=== PATIENT | male | born 1945 | race Caucasian/White ===

== ENCOUNTER 2021-06-18 15:26 | Inpatient (IN) | payer MEDICARE, OTHER ==
[~2021-06-18] VITALS: Ht 172.7 cm; Wt 122.0 kg
[2021-06-18] MEDS ORDERED: ONDANSETRON HCL INJ 2MG/ML 2ML 2 MG/ML VIAL IV STA (15:45)
[2021-06-18] MEDS ORDERED: SODIUM CHLORIDE 0.9% 1000ML 500 ML IV STA (15:45)
[2021-06-18 16:01] LABS: BASOPHILS # (AUTO) 0.1 (0.0-0.1); BASOPHILS % 0.4 % (0.0-1.0); EOSINOPHILS % 0.3 % (0.0-6.0); HEMOGLOBIN 12.3 g/dL (14.0-18.0); LYMPHOCYTES # (AUTO) 1.4 (1.0-3.2); LYMPHOCYTES % 11.4 % (18.0-39.1); MEAN CORPUSCULAR HEMOGLOBIN 29.4 pg (28-32); MEAN CORPUSCULAR HGB CONC 32.4 g/dL (31-35); MEAN CORPUSCULAR VOLUME 90.9 fL (81-99); MONOCYTES # (AUTO) 1.4 (0.2-0.8); MONOCYTES % 11.3 % (4.4-11.3); NEUTROPHILS # (AUTO) 9.5 (2.1-6.9); NEUTROPHILS % 75.7 % (38.7-80.0); PLATELET COUNT 311 x10e3/uL (140-360); RED BLOOD COUNT 4.18 x10e6/uL (4.3-5.7); RED CELL DISTRIBUTION WIDTH 12.9 % (11.7-14.4)
[2021-06-18 16:08] LABS: INR 0.97; PROTHROMBIN TIME 13.1 seconds (11.9-14.5)
[2021-06-18 16:09] LABS: PARTIAL THROMBOPLASTIN TIME 28.1 seconds (23.8-35.5)
[2021-06-18 16:14] LABS: ALBUMIN 3.1 g/dL (3.5-5.0); ALBUMIN/GLOBULIN RATIO 0.8 (0.8-2.0); ANION GAP 15.9 mmol/L (8-16); CALCIUM 8.2 mg/dL (8.4-10.2); CREATININE, SERUM 0.96 mg/dL (0.72-1.25); MAGNESIUM 2.7 MG/DL (1.3-2.1); POTASSIUM 3.9 mmol/L (3.5-5.1)
[2021-06-18 16:24] LABS: CREATINE KINASE MB 1.4 ng/mL (0-5.0)
[2021-06-18] MEDS ORDERED: SUCCINYLCHOLINE CHLORIDE 20 MG/ML 10ML VIAL ONE (16:33)
[2021-06-18] MEDS ORDERED: NEOSTIGMINE 1 MG/ML 10ML VIAL ONE (16:33)
[2021-06-18] MEDS ORDERED: POVIDONE IODINE 0.05% 0.05 % ML PO ONE (16:33)
[2021-06-18] MEDS ORDERED: SEVOFLURANE INHAL SOLN 250 ML PEN BTL ONE (16:33)
[2021-06-18] MEDS ORDERED: PROPOFOL IV EMULSION 10 MG/ML 20 ML VIAL ONE (16:33)
[2021-06-18] MEDS ORDERED: ONDANSETRON HCL INJ 2MG/ML 2ML 2 MG/ML VIAL ONE (16:33)
[2021-06-18] MEDS ORDERED: GLYCOPYRROLATE INJ 0.2 MG/ML VIAL ONE (16:33)
[2021-06-18] MEDS ORDERED: EPHEDRINE SULFATE INJ 50 MG/ML VIAL ONE (16:33)
[2021-06-18] MEDS ORDERED: ROCURONIUM BROMIDE 10 MG/ML 5ML VIAL IV ONE (16:33)
[2021-06-18] MEDS ORDERED: PHENYLEPHRINE HCL 1% 10 MG/ML VIAL ONE (16:33)
[2021-06-18] MEDS ORDERED: LIDOCAINE HCL 2% LOCAL INJ 5 ML SDV VIAL INJ ONE (16:33)
[2021-06-18] MEDS ORDERED: KETOROLAC TROMETHAMINE 30 MG/ML VIAL ONE (16:33)
[2021-06-18] MEDS ORDERED: SODIUM CHLORIDE 0.9% 50ML 50 ML ONE (16:37)
[2021-06-18] MEDS ORDERED: IOPAMIDOL 370 MG/ML 200 ML INFUS..BTL INJ ONE (16:37)
[2021-06-18 17:09] LABS: CLARITY,URINE SL CLOUDY (CLEAR); COLOR,URINE AMBER (YELLOW); KETONES,URINE 2+ (NEGATIVE); LEUKOCYTE ESTERASE ,URINE NEGATIVE (NEGATIVE); NITRITE,URINE NEGATIVE (NEGATIVE); PROTEIN,URINE DIPSTICK 1+ (NEGATIVE); URINE UROBILINOGEN 0.2 mg/dL (0.2 - 1)
[2021-06-18 17:20] LABS: AMORPHOUS SEDIMENT,URINE MODERATE (FEW); BACTERIA,URINE MODERATE /HPF; EPITHELIAL CELLS,URINE MODERATE /LPF
[2021-06-18] MEDS: SODIUM CHLORIDE 0.9% 1000ML 1,000 ML IV SCH (19:26)
[2021-06-18] MEDS: PIPERACILLIN/TAZOBACTAM 3.375 GM in SODIUM CHLORIDE 0.9% 50ML 50 ML IV SCH (19:30)
[2021-06-18] MEDS: Morphine 4mg Syringe 4 MG/ML INJ IV PRN (21:15)
[2021-06-18] MEDS: ONDANSETRON HCL INJ 2MG/ML 2ML 2 MG/ML VIAL IV PRN (21:16)
[2021-06-19] VITALS (10 sets, daily range): BP systolic 110–155; BP diastolic 60–74
[2021-06-19] MEDS: SODIUM CHLORIDE 0.9% 1000ML 1,000 ML IV SCH ×4 (00:45→21:49)
[2021-06-19] MEDS: PIPERACILLIN/TAZOBACTAM 3.375 GM in SODIUM CHLORIDE 0.9% 50ML 50 ML IV SCH ×3 (01:40→17:20)
[2021-06-19] MEDS: Morphine 4mg Syringe 4 MG/ML INJ IV PRN ×4 (01:41→22:04)
[2021-06-19 07:24] LABS: BASOPHILS # (AUTO) 0.1 (0.0-0.1); BASOPHILS % 0.4 % (0.0-1.0); EOSINOPHILS % 0.1 % (0.0-6.0); HEMATOCRIT 37.8 % (38.2-49.6); LYMPHOCYTES # (AUTO) 1.1 (1.0-3.2); LYMPHOCYTES % 5.8 % (18.0-39.1); MEAN CORPUSCULAR HEMOGLOBIN 29.5 pg (28-32); MEAN CORPUSCULAR HGB CONC 31.7 g/dL (31-35); MEAN CORPUSCULAR VOLUME 92.9 fL (81-99); MONOCYTES # (AUTO) 2.4 (0.2-0.8); MONOCYTES % 12.3 % (4.4-11.3); NEUTROPHILS # (AUTO) 15.4 (2.1-6.9); NEUTROPHILS % 80.7 % (38.7-80.0); PLATELET COUNT 318 x10e3/uL (140-360); RED BLOOD COUNT 4.07 x10e6/uL (4.3-5.7); RED CELL DISTRIBUTION WIDTH 12.9 % (11.7-14.4)
[2021-06-19 07:51] LABS: ALBUMIN/GLOBULIN RATIO 0.8 (0.8-2.0); ANION GAP 18.1 mmol/L (8-16); CALCIUM 8.3 mg/dL (8.4-10.2); CREATININE, SERUM 0.95 mg/dL (0.72-1.25); POTASSIUM 4.1 mmol/L (3.5-5.1)
[2021-06-19] MEDS ORDERED: FENTANYL CITRATE/PF 100MCG/2 ML INJ ONE (13:08)
[2021-06-19] MEDS ORDERED: ACETAMINOPHEN 1000 MG/100 ML IV PRN (14:30)
[2021-06-19] MEDS: SODIUM CHLORIDE 0.9% 250ML IRRIG IR SCH ×3 (14:30→22:04)
[2021-06-19] MEDS ORDERED: ALBUTEROL/IPRATROPIUM 3 ML NEB ONE (14:51)
[2021-06-19] MEDS ORDERED: HYDRALAZINE HCL 20 MG/ML VIAL IV PRN (16:15)
[2021-06-19] MEDS: INSULIN LISPRO 100 UNIT/1 ML 3ML VIAL SQ SCH ×2 (17:20→21:00)
[2021-06-20] VITALS (8 sets, daily range): BP systolic 124–160; BP diastolic 56–105
[2021-06-20] MEDS: Morphine 4mg Syringe 4 MG/ML INJ IV PRN ×3 (02:01→10:45)
[2021-06-20] MEDS: SODIUM CHLORIDE 0.9% 250ML IRRIG IR SCH ×4 (02:34→14:30)
[2021-06-20] MEDS: PIPERACILLIN/TAZOBACTAM 3.375 GM in SODIUM CHLORIDE 0.9% 50ML 50 ML IV SCH ×3 (02:34→17:04)
[2021-06-20 04:58] LABS: BASOPHILS # (AUTO) 0.1 (0.0-0.1); BASOPHILS % 0.4 % (0.0-1.0); HEMATOCRIT 32.9 % (38.2-49.6); HEMOGLOBIN 10.6 g/dL (14.0-18.0); LYMPHOCYTES # (AUTO) 1.3 (1.0-3.2); LYMPHOCYTES % 5.9 % (18.0-39.1); MEAN CORPUSCULAR HEMOGLOBIN 29.6 pg (28-32); MEAN CORPUSCULAR HGB CONC 32.2 g/dL (31-35); MEAN CORPUSCULAR VOLUME 91.9 fL (81-99); MONOCYTES # (AUTO) 2.7 (0.2-0.8); MONOCYTES % 11.7 % (4.4-11.3); NEUTROPHILS # (AUTO) 18.6 (2.1-6.9); NEUTROPHILS % 81.1 % (38.7-80.0); PLATELET COUNT 261 x10e3/uL (140-360); RED BLOOD COUNT 3.58 x10e6/uL (4.3-5.7); RED CELL DISTRIBUTION WIDTH 13.1 % (11.7-14.4)
[2021-06-20 05:23] LABS: ALBUMIN 2.6 g/dL (3.5-5.0); ALBUMIN/GLOBULIN RATIO 0.7 (0.8-2.0); ANION GAP 17.4 mmol/L (8-16); CALCIUM 7.7 mg/dL (8.4-10.2); CREATININE, SERUM 1.05 mg/dL (0.72-1.25); MAGNESIUM 2.7 MG/DL (1.3-2.1); POTASSIUM 4.4 mmol/L (3.5-5.1)
[2021-06-20] MEDS: SODIUM CHLORIDE 0.9% 1000ML 1,000 ML IV SCH ×2 (06:08→17:05)
[2021-06-20] MEDS: INSULIN LISPRO 100 UNIT/1 ML 3ML VIAL SQ SCH ×4 (07:30→21:00)
[2021-06-20] MEDS ORDERED: LYRICA150 MG PO (11:11)
[2021-06-20] MEDS ORDERED: BUSPIRONE HCL5 MG PO (11:11)
[2021-06-20] MEDS ORDERED: MONTELUKAST SOD10 MG PO (11:11)
[2021-06-20] MEDS ORDERED: FUROSEMIDE40 MG PO (11:11)
[2021-06-20] MEDS ORDERED: LEVOCETIRIZINE D5 MG (11:11)
[2021-06-20] MEDS ORDERED: LOSARTAN POTASS25 MG PO (11:11)
[2021-06-20] MEDS ORDERED: CARVEDILOL12.5 MG PO (11:11)
[2021-06-20] MEDS ORDERED: CYMBALTA30 MG (11:11)
[2021-06-20] MEDS ORDERED: PRAVASTATIN SOD40 MG PO (11:11)
[2021-06-20 11:18] LABS: LYMPHOCYTES % (MANUAL) 6 % (19-48); MONOCYTES % (MANUAL) 4 % (3.4-9.0); NEUTROPHILS % (MANUAL) 90 % (40-74)
[2021-06-20 11:19] LABS: PLATELET ESTIMATE ADEQUATE; PLATELET MORPHOLOGY COMMENT NORMAL; RBC MORPHOLOGY COMMENT NORMAL
[2021-06-20] MEDS: TAMSULOSIN HCL 0.4 MG CAP PO SCH (21:00)
[2021-06-20] MEDS: Morphine 2mg Syringe 2 MG/ML SYR IV PRN (22:38)
[2021-06-21 00:34] VITALS: BP 160/62
[2021-06-21] MEDS: PIPERACILLIN/TAZOBACTAM 3.375 GM in SODIUM CHLORIDE 0.9% 50ML 50 ML IV SCH ×3 (01:54→17:43)
[2021-06-21 05:09] VITALS: BP 140/71
[2021-06-21] MEDS: SODIUM CHLORIDE 0.9% 1000ML 1,000 ML IV SCH ×2 (06:02→15:43)
[2021-06-21] MEDS: Morphine 2mg Syringe 2 MG/ML SYR IV PRN (06:09)
[2021-06-21 06:28] LABS: BASOPHILS # (AUTO) 0.1 (0.0-0.1); BASOPHILS % 0.3 % (0.0-1.0); EOSINOPHILS % 0.1 % (0.0-6.0); HEMATOCRIT 29.6 % (38.2-49.6); HEMOGLOBIN 10.1 g/dL (14.0-18.0); LYMPHOCYTES # (AUTO) 1.1 (1.0-3.2); LYMPHOCYTES % 4.8 % (18.0-39.1); MEAN CORPUSCULAR HEMOGLOBIN 32.4 pg (28-32); MEAN CORPUSCULAR HGB CONC 34.1 g/dL (31-35); MEAN CORPUSCULAR VOLUME 94.9 fL (81-99); MONOCYTES # (AUTO) 2.5 (0.2-0.8); MONOCYTES % 10.7 % (4.4-11.3); NEUTROPHILS # (AUTO) 19.5 (2.1-6.9); NEUTROPHILS % 82.7 % (38.7-80.0); PLATELET COUNT 212 x10e3/uL (140-360); RED BLOOD COUNT 3.12 x10e6/uL (4.3-5.7)
[2021-06-21 06:53] LABS: ALBUMIN 2.4 g/dL (3.5-5.0); ALBUMIN/GLOBULIN RATIO 0.6 (0.8-2.0); CREATININE, SERUM 0.76 mg/dL (0.72-1.25); MAGNESIUM 2.1 MG/DL (1.3-2.1)
[2021-06-21] MEDS: INSULIN LISPRO 100 UNIT/1 ML 3ML VIAL SQ SCH ×4 (07:30→21:44)
[2021-06-21 08:00] VITALS: BP 152/65
[2021-06-21 11:00] VITALS: BP 152/65
[2021-06-21] MEDS: MONTELUKAST SODIUM 10 MG TAB PO SCH (11:05)
[2021-06-21 12:19] VITALS: BP 144/63
[2021-06-21] MEDS: FUROSEMIDE INJ 10 MG/ML 4 ML VIAL IV SCH (15:00)
[2021-06-21 20:00] VITALS: BP 142/93
[2021-06-21] MEDS: TAMSULOSIN HCL 0.4 MG CAP PO SCH (20:25)
[2021-06-21] MEDS: ALBUTEROL/IPRATROPIUM 3 ML NEB NEB SCH (23:38)
[2021-06-22] VITALS (7 sets, daily range): BP systolic 126–163; BP diastolic 57–75
[2021-06-22] MEDS: PIPERACILLIN/TAZOBACTAM 3.375 GM in SODIUM CHLORIDE 0.9% 50ML 50 ML IV SCH ×3 (01:30→16:53)
[2021-06-22] MEDS: SODIUM CHLORIDE 0.9% 1000ML 1,000 ML IV SCH ×2 (01:43→12:47)
[2021-06-22] MEDS: Morphine 2mg Syringe 2 MG/ML SYR IV PRN (03:37)
[2021-06-22 06:05] LABS: BASOPHILS # (AUTO) 0.1 (0.0-0.1); BASOPHILS % 0.3 % (0.0-1.0); EOSINOPHILS # (AUTO) 0.1 (0.0-0.4); EOSINOPHILS % 0.6 % (0.0-6.0); HEMATOCRIT 30.2 % (38.2-49.6); HEMOGLOBIN 10.1 g/dL (14.0-18.0); LYMPHOCYTES # (AUTO) 1.3 (1.0-3.2); LYMPHOCYTES % 7.2 % (18.0-39.1); MEAN CORPUSCULAR HGB CONC 33.4 g/dL (31-35); MEAN CORPUSCULAR VOLUME 89.6 fL (81-99); MONOCYTES # (AUTO) 2.2 (0.2-0.8); MONOCYTES % 12.3 % (4.4-11.3); NEUTROPHILS # (AUTO) 14.1 (2.1-6.9); NEUTROPHILS % 78.1 % (38.7-80.0); PLATELET COUNT 270 x10e3/uL (140-360); RED BLOOD COUNT 3.37 x10e6/uL (4.3-5.7); RED CELL DISTRIBUTION WIDTH 13.4 % (11.7-14.4)
[2021-06-22 06:53] LABS: ANION GAP 16.4 mmol/L (8-16); CALCIUM 8.4 mg/dL (8.4-10.2); CREATININE, SERUM 0.76 mg/dL (0.72-1.25); POTASSIUM 3.4 mmol/L (3.5-5.1)
[2021-06-22] MEDS: INSULIN LISPRO 100 UNIT/1 ML 3ML VIAL SQ SCH ×4 (07:30→21:17)
[2021-06-22] MEDS: ALBUTEROL/IPRATROPIUM 3 ML NEB NEB SCH ×3 (08:23→19:20)
[2021-06-22] MEDS ORDERED: MONTELUKAST SODIUM 10 MG TAB PO SCH (09:00)
[2021-06-22] MEDS: FUROSEMIDE INJ 10 MG/ML 4 ML VIAL IV SCH ×2 (09:35→16:52)
[2021-06-22] MEDS: MONTELUKAST SODIUM 10 MG TAB PO SCH (09:35)
[2021-06-22] MEDS: TAMSULOSIN HCL 0.4 MG CAP PO SCH (21:15)
[2021-06-23] VITALS: BP 147/85
[2021-06-23] MEDS: ONDANSETRON HCL INJ 2MG/ML 2ML 2 MG/ML VIAL IV PRN (01:17)
[2021-06-23] MEDS: ALBUTEROL/IPRATROPIUM 3 ML NEB NEB SCH ×3 (01:30→14:32)
[2021-06-23] MEDS: PIPERACILLIN/TAZOBACTAM 3.375 GM in SODIUM CHLORIDE 0.9% 50ML 50 ML IV SCH ×3 (01:35→16:41)
[2021-06-23] MEDS ORDERED: PANTOPRAZOLE SOD 40 MG TABEC PO ONE (02:30)
[2021-06-23 04:00] VITALS: BP 146/65
[2021-06-23 05:46] LABS: BASOPHILS # (AUTO) 0.1 (0.0-0.1); BASOPHILS % 0.7 % (0.0-1.0); EOSINOPHILS # (AUTO) 0.1 (0.0-0.4); EOSINOPHILS % 0.4 % (0.0-6.0); HEMATOCRIT 31.5 % (38.2-49.6); HEMOGLOBIN 10.5 g/dL (14.0-18.0); LYMPHOCYTES # (AUTO) 1.2 (1.0-3.2); LYMPHOCYTES % 10.3 % (18.0-39.1); MEAN CORPUSCULAR HEMOGLOBIN 29.2 pg (28-32); MEAN CORPUSCULAR HGB CONC 33.3 g/dL (31-35); MEAN CORPUSCULAR VOLUME 87.5 fL (81-99); MONOCYTES # (AUTO) 1.8 (0.2-0.8); MONOCYTES % 14.8 % (4.4-11.3); NEUTROPHILS # (AUTO) 8.4 (2.1-6.9); NEUTROPHILS % 69.9 % (38.7-80.0); PLATELET COUNT 295 x10e3/uL (140-360); RED CELL DISTRIBUTION WIDTH 13.2 % (11.7-14.4)
[2021-06-23 06:05] LABS: CALCIUM 8.2 mg/dL (8.4-10.2); CREATININE, SERUM 0.68 mg/dL (0.72-1.25)
[2021-06-23] MEDS ORDERED: PANTOPRAZOLE SOD 40 MG TABEC PO SCH (07:30)
[2021-06-23 08:00] VITALS: BP 125/75
[2021-06-23] MEDS: FUROSEMIDE INJ 10 MG/ML 4 ML VIAL IV SCH ×2 (09:36→16:40)
[2021-06-23] MEDS: INSULIN LISPRO 100 UNIT/1 ML 3ML VIAL SQ SCH ×3 (09:37→16:40)
[2021-06-23 12:00] VITALS: BP 142/101
[2021-06-23] MEDS ORDERED: SIMETHICONE 80 MG CHEW PO PRN (12:45)
[2021-06-23 13:14] VITALS: BP 142/101
[2021-06-23] MEDS: POTASSIUM CHLORIDE 20 MEQ TAB CR PO SCH ×3 (15:35→16:41)
[2021-06-23] MEDS: MONTELUKAST SODIUM 10 MG TAB PO SCH (15:36)
[2021-06-23 15:54] VITALS: BP 149/86
[2021-06-24] MEDS ORDERED: PANTOPRAZOLE SOD 40 MG TABEC PO SCH (07:30)
[2021-06-24] MEDS ORDERED: LOSARTAN POTASSIUM 25 MG TAB PO SCH (09:00)
== END 2021-06-23 19:20 | disposition home or self-care (01) | DRG 353 ==
LOC: ER 17:48 → ERHOLD 18:41 → MED/SURG2 06-19 00:33
PROVIDERS: ADMIT Family Medicine; ATTEND Family Medicine
PROC: 0WUF0JZ Supplement Abdominal Wall with Synthetic Substitute, Open Approach (ICD-10-PCS; principal; 2021-06-19 11:30)
DX: K43.6 Other and unspecified ventral hernia with obstruction, without gangrene (principal); I50.33 Acute on chronic diastolic (congestive) heart failure; Z68.41 Body mass index [BMI] 40.0-44.9, adult; N39.0 Urinary tract infection, site not specified; I50.22 Chronic systolic (congestive) heart failure; I50.32 Chronic diastolic (congestive) heart failure; I25.10 Atherosclerotic heart disease of native coronary artery without angina pectoris; I11.0 Hypertensive heart disease with heart failure; E11.21 Type 2 diabetes mellitus with diabetic nephropathy; E11.42 Type 2 diabetes mellitus with diabetic polyneuropathy; E66.01 Morbid (severe) obesity due to excess calories; N43.3 Hydrocele, unspecified; E27.8 Other specified disorders of adrenal gland; N39.41 Urge incontinence; N32.81 Overactive bladder; R31.0 Gross hematuria; N47.1 Phimosis; E87.6 Hypokalemia; D64.9 Anemia, unspecified; Z95.0 Presence of cardiac pacemaker; Z95.1 Presence of aortocoronary bypass graft; E83.51 Hypocalcemia; Z91.81 History of falling
CPT/HCPCS: 36415; 51700; 70450; 71045; 71250; 72125; 74018; 74177; 80048; 80053; 81001; 82150; 82550; 82553; 82948; 83690; 83735; 83880; 84484; 85025; 85610; 85730; 87086; 88302; 88304; 93005; 93306; 94640; 97139; 99285; C1781; J0330; J0360; J1885; J1940; J2001; J2270; J2370; J2405; J2543; J2710; J3010; J7030; Q9967; U0002

== ENCOUNTER 2022-02-03 16:59 | Inpatient (IN) | payer MEDICARE, OTHER ==
[~2022-02-03] VITALS: Ht 172.7 cm; Wt 127.3 kg
[~2022-02-03 16:59] MED LIST: BUSPIRONE HCL5 MG PO; CARVEDILOL12.5 MG PO; CYMBALTA30 MG; FUROSEMIDE40 MG PO; LEVOCETIRIZINE D5 MG; LOSARTAN POTASS25 MG PO; LYRICA150 MG PO; MONTELUKAST SOD10 MG PO; PRAVASTATIN SOD40 MG PO
[2022-02-03 17:25] LABS: BASOPHILS # (AUTO) 0.1 (0.0-0.1); BASOPHILS % 0.5 % (0.0-1.0); EOSINOPHILS # (AUTO) 0.1 (0.0-0.4); HEMATOCRIT 29.1 % (38.2-49.6); HEMOGLOBIN 9.3 g/dL (14.0-18.0); LYMPHOCYTES # (AUTO) 1.5 (1.0-3.2); LYMPHOCYTES % 13.9 % (18.0-39.1); MEAN CORPUSCULAR HEMOGLOBIN 28.4 pg (28-32); MEAN CORPUSCULAR VOLUME 88.7 fL (81-99); MONOCYTES # (AUTO) 1.7 (0.2-0.8); MONOCYTES % 15.8 % (4.4-11.3); NEUTROPHILS # (AUTO) 7.3 (2.1-6.9); PLATELET COUNT 338 x10e3/uL (140-360); RED BLOOD COUNT 3.28 x10e6/uL (4.3-5.7); RED CELL DISTRIBUTION WIDTH 17.4 % (11.7-14.4)
[2022-02-03 17:44] LABS: ALBUMIN 2.4 g/dL (3.5-5.0); ALBUMIN/GLOBULIN RATIO 0.5 (0.8-2.0); ANION GAP 16.1 mmol/L (8-16); CALCIUM 8.5 mg/dL (8.4-10.2); CREATININE, SERUM 1.06 mg/dL (0.72-1.25); POTASSIUM 4.1 mmol/L (3.5-5.1)
[2022-02-03] MEDS ORDERED: IOPAMIDOL 370 MG/ML 100 ML INFUS..BTL INJ ONE (18:17)
[2022-02-03] MEDS ORDERED: PIPERACILLIN/TAZOBACTAM 3.375 GM VIAL ONE (19:27)
[2022-02-03 19:58] VITALS: BP 141/59
[2022-02-03 20:10] VITALS: BP 141/59
[2022-02-03] MEDS: Morphine 4mg Syringe 4 MG/ML INJ IV PRN (21:48)
[2022-02-03] MEDS: ONDANSETRON HCL INJ 2MG/ML 2ML 2 MG/ML VIAL IV PRN (21:48)
[2022-02-04] MEDS: HYDROCODONE/APAP 5MG-325MG TAB PO PRN (00:15)
[2022-02-04 00:17] VITALS: BP 125/80
[2022-02-04] MEDS: FUROSEMIDE INJ 10 MG/ML 4 ML VIAL IV SCH ×3 (01:03→20:32)
[2022-02-04] MEDS ORDERED: ALBUTEROL (02:15)
[2022-02-04] MEDS ORDERED: SODIUM CHLORIDE 0.9% 250ML 250 ML ONE (02:29)
[2022-02-04 04:00] VITALS: BP 121/52
[2022-02-04 04:58] LABS: BASOPHILS # (AUTO) 0.1 (0.0-0.1); BASOPHILS % 0.5 % (0.0-1.0); EOSINOPHILS # (AUTO) 0.1 (0.0-0.4); EOSINOPHILS % 0.9 % (0.0-6.0); HEMATOCRIT 30.5 % (38.2-49.6); HEMOGLOBIN 9.7 g/dL (14.0-18.0); LYMPHOCYTES # (AUTO) 1.6 (1.0-3.2); LYMPHOCYTES % 13.4 % (18.0-39.1); MEAN CORPUSCULAR HEMOGLOBIN 28.4 pg (28-32); MEAN CORPUSCULAR HGB CONC 31.8 g/dL (31-35); MEAN CORPUSCULAR VOLUME 89.2 fL (81-99); MONOCYTES # (AUTO) 1.9 (0.2-0.8); MONOCYTES % 16.4 % (4.4-11.3); NEUTROPHILS # (AUTO) 7.9 (2.1-6.9); NEUTROPHILS % 66.9 % (38.7-80.0); PLATELET COUNT 360 x10e3/uL (140-360); RED BLOOD COUNT 3.42 x10e6/uL (4.3-5.7); RED CELL DISTRIBUTION WIDTH 17.8 % (11.7-14.4)
[2022-02-04 05:19] LABS: ALBUMIN 2.5 g/dL (3.5-5.0); ALBUMIN/GLOBULIN RATIO 0.5 (0.8-2.0); ANION GAP 14.5 mmol/L (8-16); CALCIUM 8.3 mg/dL (8.4-10.2); CREATININE, SERUM 1.13 mg/dL (0.72-1.25); POTASSIUM 4.5 mmol/L (3.5-5.1)
[2022-02-04 05:57] LABS: CREATINE KINASE MB 2.8 ng/mL (0-5.0)
[2022-02-04] MEDS: ONDANSETRON HCL INJ 2MG/ML 2ML 2 MG/ML VIAL IV PRN ×2 (08:00→17:53)
[2022-02-04] MEDS: Morphine 4mg Syringe 4 MG/ML INJ IV PRN ×3 (08:00→23:10)
[2022-02-04 08:55] VITALS: BP 121/52
[2022-02-04 14:06] LABS: CREATINE KINASE MB 2.6 ng/mL (0-5.0)
[2022-02-04 20:03] VITALS: BP 140/78
[2022-02-04] MEDS: ALBUTEROL SULF 0.083% NEB SOLN 3 ML NEB NEB SCH (22:45)
[2022-02-04 23:27] VITALS: BP 140/78
[2022-02-04] MEDS ORDERED: CALCIUM CARBONATE 500 MG CHEWABLE TABS PO PRN (23:45)
[2022-02-05] MEDS: SUCRALFATE 1 GM TAB PO SCH ×2 (00:03→21:28)
[2022-02-05] MEDS: Morphine 4mg Syringe 4 MG/ML INJ IV PRN ×2 (03:15→07:35)
[2022-02-05 05:42] VITALS: BP 135/70
[2022-02-05 06:08] LABS: BASOPHILS # (AUTO) 0.1 (0.0-0.1); BASOPHILS % 0.5 % (0.0-1.0); EOSINOPHILS % 0.2 % (0.0-6.0); HEMATOCRIT 30.7 % (38.2-49.6); HEMOGLOBIN 9.8 g/dL (14.0-18.0); LYMPHOCYTES # (AUTO) 1.6 (1.0-3.2); LYMPHOCYTES % 12.7 % (18.0-39.1); MEAN CORPUSCULAR HEMOGLOBIN 28.7 pg (28-32); MEAN CORPUSCULAR HGB CONC 31.9 g/dL (31-35); MEAN CORPUSCULAR VOLUME 89.8 fL (81-99); MONOCYTES % 15.3 % (4.4-11.3); NEUTROPHILS # (AUTO) 8.9 (2.1-6.9); NEUTROPHILS % 69.2 % (38.7-80.0); PLATELET COUNT 389 x10e3/uL (140-360); RED BLOOD COUNT 3.42 x10e6/uL (4.3-5.7); RED CELL DISTRIBUTION WIDTH 18.2 % (11.7-14.4)
[2022-02-05] MEDS: ALBUTEROL SULF 0.083% NEB SOLN 3 ML NEB NEB SCH ×2 (06:25→13:30)
[2022-02-05 06:45] LABS: ALBUMIN 2.4 g/dL (3.5-5.0); ALBUMIN/GLOBULIN RATIO 0.5 (0.8-2.0); ANION GAP 15.3 mmol/L (8-16); CALCIUM 8.5 mg/dL (8.4-10.2); CREATININE, SERUM 1.29 mg/dL (0.72-1.25); POTASSIUM 4.3 mmol/L (3.5-5.1)
[2022-02-05] MEDS: ONDANSETRON HCL INJ 2MG/ML 2ML 2 MG/ML VIAL IV PRN (07:35)
[2022-02-05] MEDS: FUROSEMIDE INJ 10 MG/ML 4 ML VIAL IV SCH ×2 (07:43→21:28)
[2022-02-05] MEDS: BUSPIRONE HCL 5 MG TAB PO SCH ×3 (07:49→21:28)
[2022-02-05] MEDS: PREGABALIN 75 MG CAP PO SCH (07:50)
[2022-02-05] MEDS: SODIUM CHLORIDE 1 GM TAB PO SCH ×3 (07:50→21:28)
[2022-02-05] MEDS: CARVEDILOL 12.5 MG TAB PO SCH ×2 (07:50→17:49)
[2022-02-05] MEDS: DULOXETINE HCL 30 MG DELAYED RELEASE PO SCH (07:50)
[2022-02-05] MEDS: LOSARTAN POTASSIUM 25 MG TAB PO SCH (07:50)
[2022-02-05 08:46] VITALS: BP 135/70
[2022-02-05] MEDS: BALSAM PERU/CASTOR OIL 60 GM OINT...G. TP SCH (09:00)
[2022-02-05] MEDS: CLINDAMYCIN PHOS 900MG/ 50ML 50 ML IV SCH ×2 (14:30→21:32)
[2022-02-05] MEDS ORDERED: DEXTROSE 50% SYRINGE 50 ML IV PRN (14:45)
[2022-02-05] MEDS: LORATADINE 10 MG TAB PO SCH (17:48)
[2022-02-05] MEDS: MONTELUKAST SODIUM 10 MG TAB PO SCH (17:49)
[2022-02-05] MEDS: APIXABAN 5 MG TABLET PO SCH (17:49)
[2022-02-05] MEDS: INSULIN REGULAR, HUMAN 100 UNIT/1 ML SQ SCH ×2 (18:11→21:30)
[2022-02-05] MEDS ORDERED: ALBUTEROL SULF 0.083% NEB SOLN 3 ML NEB NEB SCH (19:00)
[2022-02-05] MEDS: ALBUTEROL/IPRATROPIUM 3 ML NEB NEB SCH (19:06)
[2022-02-05] MEDS: HYDROCODONE/APAP 5MG-325MG TAB PO PRN (19:07)
[2022-02-05 19:46] LABS: CLARITY,URINE CLOUDY (CLEAR); COLOR,URINE YELLOW (YELLOW)
[2022-02-05 19:47] LABS: KETONES,URINE NEGATIVE (NEGATIVE); LEUKOCYTE ESTERASE ,URINE MODERATE (NEGATIVE); NITRITE,URINE NEGATIVE (NEGATIVE); PROTEIN,URINE DIPSTICK 1+ (NEGATIVE); URINE UROBILINOGEN 0.2 mg/dL (0.2 - 1)
[2022-02-05 20:07] LABS: WBC,URINE (MAN) >50 /HPF (0-5)
[2022-02-05 20:08] LABS: BACTERIA,URINE MANY /HPF; EPITHELIAL CELLS,URINE FEW /LPF
[2022-02-05 20:10] LABS: YEAST,URINE FEW
[2022-02-05 20:11] VITALS: BP 110/79
[2022-02-05] MEDS: PRAVASTATIN 20 MG TAB PO SCH (21:28)
[2022-02-05] MEDS: TAMSULOSIN HCL 0.4 MG CAP PO SCH (21:28)
[2022-02-05] MEDS: INSULIN GLARGINE 100 UNITS/ML VIAL SQ SCH (21:29)
[2022-02-05 22:58] VITALS: BP 110/79
[2022-02-05 23:58] VITALS: BP 90/62
[2022-02-06] VITALS (7 sets, daily range): BP systolic 94–111; BP diastolic 46–68
[2022-02-06] MEDS: ALBUTEROL/IPRATROPIUM 3 ML NEB NEB SCH ×5 (00:52→23:01)
[2022-02-06] MEDS: CLINDAMYCIN PHOS 900MG/ 50ML 50 ML IV SCH ×3 (06:00→23:37)
[2022-02-06 06:14] LABS: BASOPHILS # (AUTO) 0.1 (0.0-0.1); BASOPHILS % 0.5 % (0.0-1.0); EOSINOPHILS # (AUTO) 0.3 (0.0-0.4); EOSINOPHILS % 2.3 % (0.0-6.0); HEMATOCRIT 31.2 % (38.2-49.6); HEMOGLOBIN 9.8 g/dL (14.0-18.0); LYMPHOCYTES # (AUTO) 1.4 (1.0-3.2); LYMPHOCYTES % 10.3 % (18.0-39.1); MEAN CORPUSCULAR HEMOGLOBIN 28.5 pg (28-32); MEAN CORPUSCULAR HGB CONC 31.4 g/dL (31-35); MEAN CORPUSCULAR VOLUME 90.7 fL (81-99); MONOCYTES # (AUTO) 2.1 (0.2-0.8); MONOCYTES % 15.6 % (4.4-11.3); NEUTROPHILS # (AUTO) 9.5 (2.1-6.9); NEUTROPHILS % 69.3 % (38.7-80.0); PLATELET COUNT 398 x10e3/uL (140-360); RED BLOOD COUNT 3.44 x10e6/uL (4.3-5.7); RED CELL DISTRIBUTION WIDTH 18.5 % (11.7-14.4)
[2022-02-06 06:30] LABS: ANION GAP 12.2 mmol/L (8-16); CALCIUM 8.5 mg/dL (8.4-10.2); CREATININE, SERUM 1.47 mg/dL (0.72-1.25); POTASSIUM 4.2 mmol/L (3.5-5.1)
[2022-02-06] MEDS: INSULIN REGULAR, HUMAN 100 UNIT/1 ML SQ SCH ×4 (08:02→21:00)
[2022-02-06] MEDS: FUROSEMIDE INJ 10 MG/ML 4 ML VIAL IV SCH ×2 (08:09→21:00)
[2022-02-06] MEDS: BUSPIRONE HCL 5 MG TAB PO SCH ×3 (08:09→22:45)
[2022-02-06] MEDS: BALSAM PERU/CASTOR OIL 60 GM OINT...G. TP SCH (08:10)
[2022-02-06] MEDS: PREGABALIN 75 MG CAP PO SCH (08:10)
[2022-02-06] MEDS: CARVEDILOL 12.5 MG TAB PO SCH ×2 (08:10→17:00)
[2022-02-06] MEDS: APIXABAN 5 MG TABLET PO SCH ×2 (08:10→17:51)
[2022-02-06] MEDS: DULOXETINE HCL 30 MG DELAYED RELEASE PO SCH (08:10)
[2022-02-06] MEDS: SODIUM CHLORIDE 1 GM TAB PO SCH ×3 (08:10→22:57)
[2022-02-06] MEDS: LOSARTAN POTASSIUM 25 MG TAB PO SCH (08:10)
[2022-02-06] MEDS: HYDROCODONE/APAP 5MG-325MG TAB PO PRN ×2 (08:50→17:52)
[2022-02-06] MEDS: LORATADINE 10 MG TAB PO SCH (17:50)
[2022-02-06] MEDS: MONTELUKAST SODIUM 10 MG TAB PO SCH (17:51)
[2022-02-06] MEDS: INSULIN GLARGINE 100 UNITS/ML VIAL SQ SCH (21:00)
[2022-02-06] MEDS: SUCRALFATE 1 GM TAB PO SCH (22:45)
[2022-02-06] MEDS: TAMSULOSIN HCL 0.4 MG CAP PO SCH (22:45)
[2022-02-06] MEDS: PRAVASTATIN 20 MG TAB PO SCH (22:45)
[2022-02-07] VITALS (9 sets, daily range): BP systolic 93–170; BP diastolic 34–82
[2022-02-07] MEDS: CLINDAMYCIN PHOS 900MG/ 50ML 50 ML IV SCH ×3 (06:21→23:19)
[2022-02-07 06:53] LABS: BASOPHILS # (AUTO) 0.1 (0.0-0.1); BASOPHILS % 0.7 % (0.0-1.0); EOSINOPHILS # (AUTO) 0.3 (0.0-0.4); HEMATOCRIT 32.8 % (38.2-49.6); HEMOGLOBIN 10.1 g/dL (14.0-18.0); LYMPHOCYTES % 14.6 % (18.0-39.1); MEAN CORPUSCULAR HEMOGLOBIN 28.3 pg (28-32); MEAN CORPUSCULAR HGB CONC 30.8 g/dL (31-35); MEAN CORPUSCULAR VOLUME 91.9 fL (81-99); MONOCYTES # (AUTO) 2.4 (0.2-0.8); MONOCYTES % 17.8 % (4.4-11.3); NEUTROPHILS # (AUTO) 8.4 (2.1-6.9); NEUTROPHILS % 62.2 % (38.7-80.0); PLATELET COUNT 372 x10e3/uL (140-360); RED BLOOD COUNT 3.57 x10e6/uL (4.3-5.7); RED CELL DISTRIBUTION WIDTH 18.7 % (11.7-14.4)
[2022-02-07] MEDS: BUDESONIDE 0.25 MG/2 ML NEB NEB SCH ×2 (06:57→19:30)
[2022-02-07] MEDS: ALBUTEROL/IPRATROPIUM 3 ML NEB NEB SCH ×3 (06:57→19:15)
[2022-02-07] MEDS: HYDROCODONE/APAP 5MG-325MG TAB PO PRN ×2 (07:10→23:20)
[2022-02-07 07:17] LABS: ALBUMIN 2.3 g/dL (3.5-5.0); ALBUMIN/GLOBULIN RATIO 0.5 (0.8-2.0); ANION GAP 14.4 mmol/L (8-16); CALCIUM 8.4 mg/dL (8.4-10.2); CREATININE, SERUM 1.78 mg/dL (0.72-1.25); POTASSIUM 4.4 mmol/L (3.5-5.1)
[2022-02-07] MEDS: INSULIN REGULAR, HUMAN 100 UNIT/1 ML SQ SCH ×4 (08:04→22:56)
[2022-02-07] MEDS: FUROSEMIDE INJ 10 MG/ML 4 ML VIAL IV SCH ×2 (09:31→21:00)
[2022-02-07] MEDS: PREGABALIN 75 MG CAP PO SCH (09:32)
[2022-02-07] MEDS: APIXABAN 5 MG TABLET PO SCH ×2 (09:32→17:08)
[2022-02-07] MEDS: CARVEDILOL 12.5 MG TAB PO SCH ×2 (09:32→17:08)
[2022-02-07] MEDS: DULOXETINE HCL 30 MG DELAYED RELEASE PO SCH (09:32)
[2022-02-07] MEDS: BALSAM PERU/CASTOR OIL 60 GM OINT...G. TP SCH (09:32)
[2022-02-07] MEDS: LOSARTAN POTASSIUM 25 MG TAB PO SCH (09:32)
[2022-02-07] MEDS: BUSPIRONE HCL 5 MG TAB PO SCH ×3 (09:32→22:46)
[2022-02-07] MEDS: Morphine 4mg Syringe 4 MG/ML INJ IV PRN (13:03)
[2022-02-07] MEDS: LORATADINE 10 MG TAB PO SCH (17:07)
[2022-02-07] MEDS: MONTELUKAST SODIUM 10 MG TAB PO SCH (17:08)
[2022-02-07] MEDS: SUCRALFATE 1 GM TAB PO SCH (22:46)
[2022-02-07] MEDS: TAMSULOSIN HCL 0.4 MG CAP PO SCH (22:46)
[2022-02-07] MEDS: PRAVASTATIN 20 MG TAB PO SCH (22:46)
[2022-02-07] MEDS: INSULIN GLARGINE 100 UNITS/ML VIAL SQ SCH (22:57)
[2022-02-08] VITALS (7 sets, daily range): BP systolic 101–181; BP diastolic 60–154
[2022-02-08] MEDS: ALBUTEROL/IPRATROPIUM 3 ML NEB NEB SCH ×2 (01:00→06:57)
[2022-02-08 05:54] LABS: BASOPHILS # (AUTO) 0.1 (0.0-0.1); BASOPHILS % 0.5 % (0.0-1.0); EOSINOPHILS # (AUTO) 0.2 (0.0-0.4); EOSINOPHILS % 1.7 % (0.0-6.0); HEMATOCRIT 31.2 % (38.2-49.6); HEMOGLOBIN 9.7 g/dL (14.0-18.0); LYMPHOCYTES # (AUTO) 1.7 (1.0-3.2); LYMPHOCYTES % 13.3 % (18.0-39.1); MEAN CORPUSCULAR HEMOGLOBIN 28.6 pg (28-32); MEAN CORPUSCULAR HGB CONC 31.1 g/dL (31-35); MONOCYTES # (AUTO) 1.7 (0.2-0.8); NEUTROPHILS # (AUTO) 8.4 (2.1-6.9); NEUTROPHILS % 67.8 % (38.7-80.0); PLATELET COUNT 372 x10e3/uL (140-360); RED BLOOD COUNT 3.39 x10e6/uL (4.3-5.7); RED CELL DISTRIBUTION WIDTH 18.5 % (11.7-14.4)
[2022-02-08 06:09] LABS: ANION GAP 16.7 mmol/L (8-16); CALCIUM 8.4 mg/dL (8.4-10.2); CREATININE, SERUM 1.57 mg/dL (0.72-1.25); POTASSIUM 4.7 mmol/L (3.5-5.1)
[2022-02-08] MEDS: CLINDAMYCIN PHOS 900MG/ 50ML 50 ML IV SCH ×3 (06:19→21:09)
[2022-02-08] MEDS: HYDROCODONE/APAP 5MG-325MG TAB PO PRN (06:20)
[2022-02-08] MEDS: BUDESONIDE 0.25 MG/2 ML NEB NEB SCH (07:00)
[2022-02-08] MEDS ORDERED: ALBUTEROL/IPRATROPIUM 3 ML NEB NEB PRN (08:00)
[2022-02-08] MEDS: FUROSEMIDE INJ 10 MG/ML 4 ML VIAL IV SCH ×2 (10:55→21:00)
[2022-02-08] MEDS: BUSPIRONE HCL 5 MG TAB PO SCH ×3 (10:57→21:00)
[2022-02-08] MEDS: CARVEDILOL 12.5 MG TAB PO SCH ×2 (10:58→17:26)
[2022-02-08] MEDS: LOSARTAN POTASSIUM 25 MG TAB PO SCH (10:59)
[2022-02-08] MEDS: DULOXETINE HCL 30 MG DELAYED RELEASE PO SCH (11:00)
[2022-02-08] MEDS: APIXABAN 5 MG TABLET PO SCH ×2 (11:00→17:26)
[2022-02-08] MEDS: BALSAM PERU/CASTOR OIL 60 GM OINT...G. TP SCH (11:01)
[2022-02-08] MEDS: PREGABALIN 75 MG CAP PO SCH (11:01)
[2022-02-08] MEDS: INSULIN REGULAR, HUMAN 100 UNIT/1 ML SQ SCH ×4 (11:30→21:00)
[2022-02-08] MEDS: Morphine 4mg Syringe 4 MG/ML INJ IV PRN (12:12)
[2022-02-08] MEDS: ONDANSETRON HCL INJ 2MG/ML 2ML 2 MG/ML VIAL IV PRN (12:12)
[2022-02-08] MEDS: LORATADINE 10 MG TAB PO SCH (17:25)
[2022-02-08] MEDS: MONTELUKAST SODIUM 10 MG TAB PO SCH (17:26)
[2022-02-08] MEDS: INSULIN GLARGINE 100 UNITS/ML VIAL SQ SCH (21:00)
[2022-02-08] MEDS: SUCRALFATE 1 GM TAB PO SCH (21:00)
[2022-02-08] MEDS: TAMSULOSIN HCL 0.4 MG CAP PO SCH (21:00)
[2022-02-08] MEDS: PRAVASTATIN 20 MG TAB PO SCH (21:00)
[2022-02-09] VITALS (7 sets, daily range): BP systolic 99–108; BP diastolic 46–84
[2022-02-09] MEDS: CLINDAMYCIN PHOS 900MG/ 50ML 50 ML IV SCH ×3 (05:39→22:00)
[2022-02-09] MEDS: INSULIN REGULAR, HUMAN 100 UNIT/1 ML SQ SCH ×4 (07:30→20:41)
[2022-02-09] MEDS: BALSAM PERU/CASTOR OIL 60 GM OINT...G. TP SCH (09:00)
[2022-02-09] MEDS: BUSPIRONE HCL 5 MG TAB PO SCH ×2 (09:34→15:00)
[2022-02-09] MEDS: DULOXETINE HCL 30 MG DELAYED RELEASE PO SCH (09:34)
[2022-02-09] MEDS: LOSARTAN POTASSIUM 25 MG TAB PO SCH (09:34)
[2022-02-09] MEDS: CARVEDILOL 12.5 MG TAB PO SCH ×2 (09:34→17:00)
[2022-02-09] MEDS: APIXABAN 5 MG TABLET PO SCH ×2 (09:35→17:40)
[2022-02-09] MEDS: PREGABALIN 75 MG CAP PO SCH (09:35)
[2022-02-09] MEDS: FUROSEMIDE INJ 10 MG/ML 4 ML VIAL IV SCH ×2 (09:36→20:50)
[2022-02-09 13:56] LABS: BASOPHILS # (AUTO) 0.1 (0.0-0.1); BASOPHILS % 0.4 % (0.0-1.0); EOSINOPHILS # (AUTO) 0.1 (0.0-0.4); EOSINOPHILS % 0.6 % (0.0-6.0); HEMATOCRIT 30.1 % (38.2-49.6); HEMOGLOBIN 9.3 g/dL (14.0-18.0); LYMPHOCYTES # (AUTO) 1.7 (1.0-3.2); MEAN CORPUSCULAR HEMOGLOBIN 27.8 pg (28-32); MEAN CORPUSCULAR HGB CONC 30.9 g/dL (31-35); MEAN CORPUSCULAR VOLUME 90.1 fL (81-99); MONOCYTES % 12.7 % (4.4-11.3); NEUTROPHILS # (AUTO) 11.4 (2.1-6.9); NEUTROPHILS % 73.4 % (38.7-80.0); PLATELET COUNT 377 x10e3/uL (140-360); RED BLOOD COUNT 3.34 x10e6/uL (4.3-5.7); RED CELL DISTRIBUTION WIDTH 18.1 % (11.7-14.4)
[2022-02-09 14:19] LABS: ALBUMIN 2.1 g/dL (3.5-5.0); ALBUMIN/GLOBULIN RATIO 0.5 (0.8-2.0); ANION GAP 13.3 mmol/L (8-16); CALCIUM 8.2 mg/dL (8.4-10.2); CREATININE, SERUM 1.22 mg/dL (0.72-1.25); POTASSIUM 4.3 mmol/L (3.5-5.1)
[2022-02-09] MEDS ORDERED: SODIUM CHLORIDE 452MG TAB PO ONE (14:45)
[2022-02-09] MEDS ORDERED: SODIUM BICARBONATE 8.4% INJ 50 ML SYR IV ONE ×2 (15:15→15:50)
[2022-02-09] MEDS ORDERED: Vancomycin IV 1 GM in SODIUM CHLORIDE 0.9% 250ML 250 ML IV ONE (15:15)
[2022-02-09] MEDS: LORATADINE 10 MG TAB PO SCH (17:40)
[2022-02-09] MEDS: MONTELUKAST SODIUM 10 MG TAB PO SCH (17:40)
[2022-02-09 17:42] LABS: ABG HCO3 24 mmol/L (22-26); ABG PCO2 38 mmHg (35-45); ABG PH 7.42 (7.35-7.45); ABG PO2 114 mmHg (80-105); ABG TCO2 25
[2022-02-09] MEDS ORDERED: LORAZEPAM INJ 2 MG/ML VIAL IV ONE (18:00)
[2022-02-09] MEDS ORDERED: NYSTATIN 15 GM POWDER UD BTL TOP SCH (18:15)
[2022-02-09] MEDS ORDERED: FUROSEMIDE INJ 10 MG/ML 4 ML VIAL IV ONE (18:15)
[2022-02-09] MEDS: PRAVASTATIN 20 MG TAB PO SCH (20:50)
[2022-02-09] MEDS: SUCRALFATE 1 GM TAB PO SCH (20:50)
[2022-02-09] MEDS: SODIUM CHLORIDE 1 GM TAB PO SCH (20:50)
[2022-02-09] MEDS: TAMSULOSIN HCL 0.4 MG CAP PO SCH (20:50)
[2022-02-09] MEDS: INSULIN GLARGINE 100 UNITS/ML VIAL SQ SCH (20:51)
[2022-02-10] VITALS: BP 116/86
[2022-02-10 04:00] VITALS: BP 126/76
[2022-02-10] MEDS ORDERED: SODIUM CHLORIDE 0.9% 250ML 250 ML ONE (05:08)
[2022-02-10] MEDS: CLINDAMYCIN PHOS 900MG/ 50ML 50 ML IV SCH ×2 (05:59→12:40)
[2022-02-10] MEDS: BUDESONIDE 0.25 MG/2 ML NEB NEB SCH (07:00)
[2022-02-10 07:35] VITALS: BP 126/76
[2022-02-10 07:57] VITALS: BP 100/63
[2022-02-10] MEDS: INSULIN REGULAR, HUMAN 100 UNIT/1 ML SQ SCH ×2 (08:00→12:00)
[2022-02-10 08:44] LABS: BASOPHILS # (AUTO) 0.1 (0.0-0.1); BASOPHILS % 0.3 % (0.0-1.0); EOSINOPHILS # (AUTO) 0.1 (0.0-0.4); EOSINOPHILS % 0.3 % (0.0-6.0); HEMATOCRIT 29.8 % (38.2-49.6); HEMOGLOBIN 9.5 g/dL (14.0-18.0); LYMPHOCYTES # (AUTO) 1.5 (1.0-3.2); LYMPHOCYTES % 10.2 % (18.0-39.1); MEAN CORPUSCULAR HEMOGLOBIN 28.2 pg (28-32); MEAN CORPUSCULAR HGB CONC 31.9 g/dL (31-35); MEAN CORPUSCULAR VOLUME 88.4 fL (81-99); MONOCYTES # (AUTO) 1.7 (0.2-0.8); MONOCYTES % 11.8 % (4.4-11.3); NEUTROPHILS # (AUTO) 11.1 (2.1-6.9); NEUTROPHILS % 75.9 % (38.7-80.0); PLATELET COUNT 353 x10e3/uL (140-360); RED BLOOD COUNT 3.37 x10e6/uL (4.3-5.7); RED CELL DISTRIBUTION WIDTH 18.1 % (11.7-14.4)
[2022-02-10 09:07] LABS: ALBUMIN 2.1 g/dL (3.5-5.0); ALBUMIN/GLOBULIN RATIO 0.5 (0.8-2.0); ANION GAP 15.3 mmol/L (8-16); CREATININE, SERUM 0.98 mg/dL (0.72-1.25); POTASSIUM 4.3 mmol/L (3.5-5.1)
[2022-02-10] MEDS: APIXABAN 5 MG TABLET PO SCH (09:13)
[2022-02-10] MEDS: SODIUM CHLORIDE 1 GM TAB PO SCH (09:13)
[2022-02-10] MEDS: FUROSEMIDE INJ 10 MG/ML 4 ML VIAL IV SCH (09:13)
[2022-02-10] MEDS ORDERED: SODIUM CHLORIDE 1 GM TAB PO ONE (10:30)
[2022-02-10] MEDS ORDERED: ONDANSETRON HCL 4 MG ORAL DISINTEGRATING TAB PO PRN (11:15)
[2022-02-10 11:56] VITALS: BP 107/72
[2022-02-10] MEDS ORDERED: FUROSEMIDE 40 MG TAB PO SCH (21:00)
== END 2022-02-10 12:59 | DRG 602 ==
LOC: ER 17:05 → ERHOLD 19:04 → MED/SURG2 20:11 → OBSVTOIN 02-04 16:23
PROVIDERS: ADMIT Family Medicine; ATTEND Family Medicine
DX: L03.314 Cellulitis of groin (principal); I50.43 Acute on chronic combined systolic (congestive) and diastolic (congestive) heart failure; E87.1 Hypo-osmolality and hyponatremia; Z68.41 Body mass index [BMI] 40.0-44.9, adult; J90 Pleural effusion, not elsewhere classified; L03.116 Cellulitis of left lower limb; L03.115 Cellulitis of right lower limb; J44.1 Chronic obstructive pulmonary disease with (acute) exacerbation; L03.311 Cellulitis of abdominal wall; E66.01 Morbid (severe) obesity due to excess calories; N49.2 Inflammatory disorders of scrotum; Z20.822 Contact with and (suspected) exposure to COVID-19; R53.81 Other malaise; N43.3 Hydrocele, unspecified; I11.0 Hypertensive heart disease with heart failure; E11.9 Type 2 diabetes mellitus without complications
CPT/HCPCS: 36415; 36600; 71045; 74177; 80048; 80053; 81001; 82550; 82553; 82805; 82948; 83880; 84484; 85025; 87086; 93005; 93306; 94799; 96372; 97139; 99251; 99285; G0378; J1815; J1817; J1940; J2270; J2405; J2543; J3370; J7050; Q9967; U0002

== ENCOUNTER 2022-06-20 10:40 | Inpatient (IN) | payer MEDICARE, OTHER ==
[~2022-06-20] VITALS: Ht 172.7 cm; Wt 127.0 kg
[~2022-06-20 10:40] MED LIST changes: +ALBUTEROL
[2022-06-20] MEDS ORDERED: SODIUM CHLORIDE 0.9% 1000ML 1,000 ML IV ONE ×2 (11:00→11:45)
[2022-06-20 11:11] LABS: BASOPHILS # (AUTO) 0.1 (0.0-0.1); BASOPHILS % 0.5 % (0.0-1.0); EOSINOPHILS # (AUTO) 0.2 (0.0-0.4); EOSINOPHILS % 2.4 % (0.0-6.0); HEMATOCRIT 32.1 % (38.2-49.6); HEMOGLOBIN 10.1 g/dL (14.0-18.0); LYMPHOCYTES # (AUTO) 1.1 (1.0-3.2); LYMPHOCYTES % 10.3 % (18.0-39.1); MEAN CORPUSCULAR HEMOGLOBIN 26.5 pg (28-32); MEAN CORPUSCULAR HGB CONC 31.5 g/dL (31-35); MEAN CORPUSCULAR VOLUME 84.3 fL (81-99); MONOCYTES # (AUTO) 1.4 (0.2-0.8); MONOCYTES % 13.5 % (4.4-11.3); NEUTROPHILS # (AUTO) 7.4 (2.1-6.9); NEUTROPHILS % 72.8 % (38.7-80.0); PLATELET COUNT 291 x10e3/uL (140-360); RED BLOOD COUNT 3.81 x10e6/uL (4.3-5.7)
[2022-06-20 11:19] LABS: INR 1.2; PROTHROMBIN TIME 16.3 seconds (11.9-14.5)
[2022-06-20 11:20] LABS: PARTIAL THROMBOPLASTIN TIME 31.6 seconds (23.8-35.5)
[2022-06-20] MEDS ORDERED: Vancomycin IV 2 GM in SODIUM CHLORIDE 0.9% 500ML 500 ML IV ONE (11:25)
[2022-06-20 11:26] LABS: ALANINE AMINOTRANSFERASE 9 IU/L (0-55); ALBUMIN 3.2 g/dL (3.5-5.0); ALBUMIN/GLOBULIN RATIO 0.6 (0.8-2.0); ALKALINE PHOSPHATASE 169 IU/L (40-150); ANION GAP 17.1 mmol/L (8-16); BLOOD UREA NITROGEN 36 mg/dL (7-26); BUN/CREATININE RATIO 24 (6-25); CALCIUM 9.1 mg/dL (8.4-10.2); CARBON DIOXIDE 30 mmol/L (22-29); CHLORIDE 85 mmol/L (98-107); CREATININE, SERUM 1.48 mg/dL (0.72-1.25); POTASSIUM 4.1 mmol/L (3.5-5.1); SODIUM 128 mmol/L (136-145)
[2022-06-20 11:31] LABS: GLUCOSE 673 mg/dL (74-118)
[2022-06-20] MEDS ORDERED: IOPAMIDOL 370 MG/ML 100 ML INFUS..BTL INJ ONE (11:56)
[2022-06-20] MEDS ORDERED: INSULIN REGULAR, HUMAN 100 UNIT/1 ML IV ONE (12:00)
[2022-06-20 12:01] LABS: CLARITY,URINE CLEAR (CLEAR); COLOR,URINE COLORLESS (YELLOW); LEUKOCYTE ESTERASE ,URINE NEGATIVE (NEGATIVE); NITRITE,URINE NEGATIVE (NEGATIVE); PROTEIN,URINE DIPSTICK NEGATIVE (NEGATIVE)
[2022-06-20 12:02] LABS: KETONES,URINE NEGATIVE (NEGATIVE); URINE UROBILINOGEN 0.2 mg/dL (0.2 - 1)
[2022-06-20 12:06] LABS: EPITHELIAL CELLS,URINE FEW /LPF; RBC,URINE 0-5 /HPF (0-5); WBC,URINE (MAN) 0-5 /HPF (0-5)
[2022-06-20] MEDS: HYDROCODONE/APAP 5MG-325MG TAB PO PRN (12:46)
[2022-06-20] MEDS: SODIUM CHLORIDE 0.9% 1000ML 1,000 ML IV SCH ×2 (14:04→21:45)
[2022-06-20 16:25] VITALS: BP 116/62
[2022-06-20 16:26] VITALS: BP 116/62
[2022-06-20 17:02] VITALS: BP 116/62
[2022-06-20] MEDS ORDERED: DEXTROSE 50% SYRINGE 50 ML IV PRN (17:45)
[2022-06-20 20:08] VITALS: BP 130/61
[2022-06-20 21:00] VITALS: BP 130/61
[2022-06-20] MEDS: INSULIN REGULAR, HUMAN 100 UNIT/1 ML SQ SCH (21:54)
[2022-06-21] VITALS (7 sets, daily range): BP systolic 109–134; BP diastolic 51–61
[2022-06-21] MEDS: HYDROCODONE/APAP 5MG-325MG TAB PO PRN ×4 (04:28→18:20)
[2022-06-21 06:28] LABS: BASOPHILS # (AUTO) 0.1 (0.0-0.1); BASOPHILS % 0.6 % (0.0-1.0); EOSINOPHILS # (AUTO) 0.6 (0.0-0.4); EOSINOPHILS % 5.2 % (0.0-6.0); HEMATOCRIT 28.5 % (38.2-49.6); HEMOGLOBIN 9.1 g/dL (14.0-18.0); LYMPHOCYTES # (AUTO) 1.4 (1.0-3.2); LYMPHOCYTES % 12.8 % (18.0-39.1); MEAN CORPUSCULAR HEMOGLOBIN 26.8 pg (28-32); MEAN CORPUSCULAR HGB CONC 31.9 g/dL (31-35); MEAN CORPUSCULAR VOLUME 83.8 fL (81-99); MONOCYTES # (AUTO) 1.4 (0.2-0.8); MONOCYTES % 12.5 % (4.4-11.3); NEUTROPHILS # (AUTO) 7.7 (2.1-6.9); NEUTROPHILS % 68.5 % (38.7-80.0); PLATELET COUNT 273 x10e3/uL (140-360); RED CELL DISTRIBUTION WIDTH 17.2 % (11.7-14.4)
[2022-06-21 06:45] LABS: ANION GAP 13.3 mmol/L (8-16); CALCIUM 8.4 mg/dL (8.4-10.2); CREATININE, SERUM 0.78 mg/dL (0.72-1.25); POTASSIUM 3.3 mmol/L (3.5-5.1)
[2022-06-21] MEDS: SODIUM CHLORIDE 0.9% 1000ML 1,000 ML IV SCH ×3 (06:46→22:20)
[2022-06-21] MEDS: INSULIN REGULAR, HUMAN 100 UNIT/1 ML SQ SCH ×4 (07:30→22:13)
[2022-06-21] MEDS ORDERED: ZIPRASIDONE 20 MG VIAL IM PRN (10:15)
[2022-06-21] MEDS: LORAZEPAM 0.5 MG TAB PO PRN (14:15)
[2022-06-21] MEDS: BUSPIRONE HCL 5 MG TAB PO SCH ×2 (14:17→22:11)
[2022-06-21] MEDS ORDERED: ATIVAN0.5 MG PO (16:52)
[2022-06-21] MEDS ORDERED: TRAZODONE HCL100 MG PO (16:52)
[2022-06-21] MEDS: CARVEDILOL 12.5 MG TAB PO SCH (17:00)
[2022-06-21] MEDS: ENOXAPARIN SOD INJ 40 MG/0.4 ML SYR SC SCH (17:00)
[2022-06-21] MEDS: MONTELUKAST SODIUM 10 MG TAB PO SCH (17:00)
[2022-06-21] MEDS: LORATADINE 10 MG TAB PO SCH (17:00)
[2022-06-21] MEDS: Morphine 2mg Syringe 2 MG/ML SYR IV PRN (20:35)
[2022-06-21] MEDS: INSULIN GLARGINE 100 UNITS/ML VIAL SQ SCH (22:13)
[2022-06-21] MEDS: PRAVASTATIN 20 MG TAB PO SCH (22:16)
[2022-06-22] VITALS (8 sets, daily range): BP systolic 97–130; BP diastolic 62–105
[2022-06-22] MEDS: Morphine 2mg Syringe 2 MG/ML SYR IV PRN ×2 (00:47→05:43)
[2022-06-22] MEDS: HYDROCODONE/APAP 5MG-325MG TAB PO PRN ×3 (02:55→22:42)
[2022-06-22 05:51] LABS: BASOPHILS % 0.4 % (0.0-1.0); EOSINOPHILS # (AUTO) 0.2 (0.0-0.4); EOSINOPHILS % 1.4 % (0.0-6.0); HEMATOCRIT 27.6 % (38.2-49.6); HEMOGLOBIN 8.7 g/dL (14.0-18.0); LYMPHOCYTES # (AUTO) 1.5 (1.0-3.2); LYMPHOCYTES % 13.3 % (18.0-39.1); MEAN CORPUSCULAR HEMOGLOBIN 26.5 pg (28-32); MEAN CORPUSCULAR HGB CONC 31.5 g/dL (31-35); MEAN CORPUSCULAR VOLUME 84.1 fL (81-99); MONOCYTES # (AUTO) 2.1 (0.2-0.8); MONOCYTES % 18.3 % (4.4-11.3); NEUTROPHILS # (AUTO) 7.5 (2.1-6.9); NEUTROPHILS % 65.9 % (38.7-80.0); PLATELET COUNT 259 x10e3/uL (140-360); RED BLOOD COUNT 3.28 x10e6/uL (4.3-5.7); RED CELL DISTRIBUTION WIDTH 17.2 % (11.7-14.4)
[2022-06-22 06:16] LABS: ALBUMIN 2.4 g/dL (3.5-5.0); ALBUMIN/GLOBULIN RATIO 0.6 (0.8-2.0); ANION GAP 12.2 mmol/L (8-16); CALCIUM 8.5 mg/dL (8.4-10.2); CREATININE, SERUM 0.76 mg/dL (0.72-1.25); POTASSIUM 3.2 mmol/L (3.5-5.1)
[2022-06-22] MEDS: SODIUM CHLORIDE 0.9% 1000ML 1,000 ML IV SCH ×3 (06:42→19:17)
[2022-06-22] MEDS: INSULIN REGULAR, HUMAN 100 UNIT/1 ML SQ SCH ×4 (07:30→20:32)
[2022-06-22] MEDS: CARVEDILOL 12.5 MG TAB PO SCH ×2 (08:40→16:38)
[2022-06-22] MEDS: PREGABALIN 75 MG CAP PO SCH (08:41)
[2022-06-22] MEDS: BUSPIRONE HCL 5 MG TAB PO SCH ×3 (08:41→20:29)
[2022-06-22] MEDS: DULOXETINE HCL 30 MG DELAYED RELEASE PO SCH (08:41)
[2022-06-22] MEDS: LORATADINE 10 MG TAB PO SCH (16:36)
[2022-06-22] MEDS: MONTELUKAST SODIUM 10 MG TAB PO SCH (16:36)
[2022-06-22] MEDS: ENOXAPARIN SOD INJ 40 MG/0.4 ML SYR SC SCH (16:36)
[2022-06-22] MEDS ORDERED: POTASSIUM CHLORIDE 20 MEQ TAB CR PO ONE (18:55)
[2022-06-22 20:15] LABS: % IRON SATURATION 5 % (15-50); IRON 14 ug/dL (65-175); TOTAL IRON BINDING CAPACITY 272 ug/dL (261-478); TRANSFERRIN 194 mg/dL (174-364)
[2022-06-22] MEDS: PRAVASTATIN 20 MG TAB PO SCH (20:29)
[2022-06-22] MEDS: INSULIN GLARGINE 100 UNITS/ML VIAL SQ SCH (20:33)
[2022-06-23] VITALS (8 sets, daily range): BP systolic 109–130; BP diastolic 57–72
[2022-06-23] MEDS: HYDROCODONE/APAP 5MG-325MG TAB PO PRN (03:48)
[2022-06-23] MEDS: SODIUM CHLORIDE 0.9% 1000ML 1,000 ML IV SCH ×3 (04:27→20:43)
[2022-06-23 05:50] LABS: HEMOGLOBIN 8.9 g/dL (14.0-18.0)
[2022-06-23 06:11] LABS: ANION GAP 15.6 mmol/L (8-16); CALCIUM 8.6 mg/dL (8.4-10.2); CREATININE, SERUM 0.73 mg/dL (0.72-1.25); POTASSIUM 3.6 mmol/L (3.5-5.1)
[2022-06-23] MEDS: INSULIN REGULAR, HUMAN 100 UNIT/1 ML SQ SCH ×4 (07:30→20:42)
[2022-06-23] MEDS: COLLAGENASE 5 GM TUBE TP SCH (08:32)
[2022-06-23] MEDS: DULOXETINE HCL 30 MG DELAYED RELEASE PO SCH (08:32)
[2022-06-23] MEDS: BUSPIRONE HCL 5 MG TAB PO SCH ×3 (08:32→20:34)
[2022-06-23] MEDS: PREGABALIN 75 MG CAP PO SCH (08:32)
[2022-06-23] MEDS: CARVEDILOL 12.5 MG TAB PO SCH ×2 (08:32→16:39)
[2022-06-23] MEDS: BALSAM PERU/CASTOR OIL 60 GM OINT...G. TP SCH (08:33)
[2022-06-23] MEDS: Morphine 2mg Syringe 2 MG/ML SYR IV PRN (11:27)
[2022-06-23] MEDS ORDERED: LACTULOSE SYRUP 20 GM/30 ML UDC PO ONE ×2 (14:00→18:00)
[2022-06-23] MEDS: LORATADINE 10 MG TAB PO SCH (16:36)
[2022-06-23] MEDS: ENOXAPARIN SOD INJ 40 MG/0.4 ML SYR SC SCH (16:39)
[2022-06-23] MEDS: MONTELUKAST SODIUM 10 MG TAB PO SCH (16:39)
[2022-06-23] MEDS: PRAVASTATIN 20 MG TAB PO SCH (20:34)
[2022-06-23] MEDS: INSULIN GLARGINE 100 UNITS/ML VIAL SQ SCH (20:43)
[2022-06-24] VITALS (8 sets, daily range): BP systolic 105–119; BP diastolic 56–89
[2022-06-24] MEDS: LORAZEPAM 0.5 MG TAB PO PRN (03:01)
[2022-06-24] MEDS: HYDROCODONE/APAP 5MG-325MG TAB PO PRN (04:07)
[2022-06-24] MEDS: SODIUM CHLORIDE 0.9% 1000ML 1,000 ML IV SCH ×2 (04:08→13:30)
[2022-06-24] MEDS: ALBUTEROL/IPRATROPIUM 3 ML NEB NEB SCH ×3 (05:40→18:40)
[2022-06-24] MEDS: INSULIN REGULAR, HUMAN 100 UNIT/1 ML SQ SCH ×4 (07:30→20:42)
[2022-06-24] MEDS: BUSPIRONE HCL 5 MG TAB PO SCH ×3 (09:04→20:35)
[2022-06-24] MEDS: PREGABALIN 75 MG CAP PO SCH (09:05)
[2022-06-24] MEDS: CARVEDILOL 12.5 MG TAB PO SCH ×2 (09:05→16:23)
[2022-06-24] MEDS: DULOXETINE HCL 30 MG DELAYED RELEASE PO SCH (09:05)
[2022-06-24] MEDS: COLLAGENASE 5 GM TUBE TP SCH (09:11)
[2022-06-24] MEDS: BALSAM PERU/CASTOR OIL 60 GM OINT...G. TP SCH (09:11)
[2022-06-24] MEDS: Morphine 2mg Syringe 2 MG/ML SYR IV PRN ×2 (12:03→18:38)
[2022-06-24] MEDS: ENOXAPARIN SOD INJ 40 MG/0.4 ML SYR SC SCH (16:23)
[2022-06-24] MEDS: LORATADINE 10 MG TAB PO SCH (16:23)
[2022-06-24] MEDS: MONTELUKAST SODIUM 10 MG TAB PO SCH (16:23)
[2022-06-24] MEDS: PRAVASTATIN 20 MG TAB PO SCH (20:35)
[2022-06-24] MEDS: INSULIN GLARGINE 100 UNITS/ML VIAL SQ SCH (20:42)
[2022-06-25] VITALS (8 sets, daily range): BP systolic 100–127; BP diastolic 60–101
[2022-06-25] MEDS: SODIUM CHLORIDE 0.9% 1000ML 1,000 ML IV SCH ×4 (00:33→21:30)
[2022-06-25] MEDS: ALBUTEROL/IPRATROPIUM 3 ML NEB NEB SCH ×4 (01:09→19:25)
[2022-06-25] MEDS: INSULIN REGULAR, HUMAN 100 UNIT/1 ML SQ SCH ×4 (07:30→20:13)
[2022-06-25] MEDS: DULOXETINE HCL 30 MG DELAYED RELEASE PO SCH (08:35)
[2022-06-25] MEDS: CARVEDILOL 12.5 MG TAB PO SCH ×2 (08:35→17:35)
[2022-06-25] MEDS: PREGABALIN 75 MG CAP PO SCH (08:36)
[2022-06-25] MEDS: BUSPIRONE HCL 5 MG TAB PO SCH ×3 (08:36→20:09)
[2022-06-25] MEDS: HYDROCODONE/APAP 5MG-325MG TAB PO PRN ×2 (08:39→18:31)
[2022-06-25] MEDS: BALSAM PERU/CASTOR OIL 60 GM OINT...G. TP SCH (14:06)
[2022-06-25] MEDS: COLLAGENASE 5 GM TUBE TP SCH (14:06)
[2022-06-25] MEDS: Morphine 2mg Syringe 2 MG/ML SYR IV PRN (14:07)
[2022-06-25] MEDS: LORATADINE 10 MG TAB PO SCH (17:35)
[2022-06-25] MEDS: MONTELUKAST SODIUM 10 MG TAB PO SCH (17:35)
[2022-06-25] MEDS: ENOXAPARIN SOD INJ 40 MG/0.4 ML SYR SC SCH (17:36)
[2022-06-25] MEDS: PRAVASTATIN 20 MG TAB PO SCH (20:09)
[2022-06-25] MEDS: INSULIN GLARGINE 100 UNITS/ML VIAL SQ SCH (20:12)
[2022-06-26] VITALS: BP 104/68
[2022-06-26] MEDS: Morphine 2mg Syringe 2 MG/ML SYR IV PRN
[2022-06-26] MEDS: ALBUTEROL/IPRATROPIUM 3 ML NEB NEB SCH ×3 (00:55→12:45)
[2022-06-26 04:00] VITALS: BP 109/57
[2022-06-26] MEDS: HYDROCODONE/APAP 5MG-325MG TAB PO PRN (06:15)
[2022-06-26] MEDS: INSULIN REGULAR, HUMAN 100 UNIT/1 ML SQ SCH ×2 (07:30→12:21)
[2022-06-26 08:21] VITALS: BP 112/69
[2022-06-26] MEDS: PREGABALIN 75 MG CAP PO SCH (08:59)
[2022-06-26] MEDS: BUSPIRONE HCL 5 MG TAB PO SCH (08:59)
[2022-06-26] MEDS: CARVEDILOL 12.5 MG TAB PO SCH (09:00)
[2022-06-26] MEDS: DULOXETINE HCL 30 MG DELAYED RELEASE PO SCH (09:07)
[2022-06-26] MEDS: LORAZEPAM 0.5 MG TAB PO PRN (09:17)
[2022-06-26 09:35] VITALS: BP 112/69
[2022-06-26 12:06] VITALS: BP 102/53
== END 2022-06-26 13:27 | disposition hospice, home (50) | DRG 871 ==
LOC: ER 10:45 → ERHOLD 13:21 → MED/SURG3 16:38
PROVIDERS: ADMIT Family Medicine; ATTEND Family Medicine
DX: A41.9 Sepsis, unspecified organism (principal); L89.154 Pressure ulcer of sacral region, stage 4; N43.3 Hydrocele, unspecified; I10 Essential (primary) hypertension; Z51.5 Encounter for palliative care; I87.2 Venous insufficiency (chronic) (peripheral); K42.9 Umbilical hernia without obstruction or gangrene; Z20.822 Contact with and (suspected) exposure to COVID-19; I25.10 Atherosclerotic heart disease of native coronary artery without angina pectoris; G89.4 Chronic pain syndrome; E78.5 Hyperlipidemia, unspecified; E11.69 Type 2 diabetes mellitus with other specified complication; Z66 Do not resuscitate; Z95.1 Presence of aortocoronary bypass graft; Z95.810 Presence of automatic (implantable) cardiac defibrillator; Z79.899 Other long term (current) drug therapy; J44.9 Chronic obstructive pulmonary disease, unspecified; E11.65 Type 2 diabetes mellitus with hyperglycemia; K59.00 Constipation, unspecified; I25.2 Old myocardial infarction; E11.40 Type 2 diabetes mellitus with diabetic neuropathy, unspecified
CPT/HCPCS: 0223U; 36415; 71045; 74177; 80048; 80053; 81001; 82948; 83540; 83605; 84466; 85014; 85018; 85025; 85610; 85730; 87040; 87086; 93005; 94640; 94799; 96361; 96372; 99251; 99284; J0696; J1650; J1815; J1817; J2270; J2543; J3370; J3486; J7030; J7040; Q9967

== ENCOUNTER 2022-08-20 17:51 | Emergency (ER) | payer MEDICARE, OTHER ==
[~2022-08-20] VITALS: Ht 172.7 cm; Wt 94.3 kg
[~2022-08-20 17:51] MED LIST changes: +ATIVAN0.5 MG PO; +TRAZODONE HCL100 MG PO
[2022-08-20 18:49] LABS: BASOPHILS % 0.6 % (0.0-1.0); EOSINOPHILS # (AUTO) 0.1 (0.0-0.4); EOSINOPHILS % 1.1 % (0.0-6.0); HEMATOCRIT 43.1 % (38.2-49.6); HEMOGLOBIN 12.8 g/dL (14.0-18.0); LYMPHOCYTES # (AUTO) 0.7 (1.0-3.2); LYMPHOCYTES % 10.3 % (18.0-39.1); MEAN CORPUSCULAR HEMOGLOBIN 26.6 pg (28-32); MEAN CORPUSCULAR HGB CONC 29.7 g/dL (31-35); MEAN CORPUSCULAR VOLUME 89.4 fL (81-99); MONOCYTES % 13.8 % (4.4-11.3); NEUTROPHILS # (AUTO) 5.3 (2.1-6.9); NEUTROPHILS % 73.5 % (38.7-80.0); PLATELET COUNT 209 x10e3/uL (140-360); RED BLOOD COUNT 4.82 x10e6/uL (4.3-5.7); RED CELL DISTRIBUTION WIDTH 18.4 % (11.7-14.4)
[2022-08-20 19:10] LABS: ALBUMIN 3.1 g/dL (3.5-5.0); ALBUMIN/GLOBULIN RATIO 0.7 (0.8-2.0); ANION GAP 17.9 mmol/L (8-16); CREATININE, SERUM 0.83 mg/dL (0.72-1.25); POTASSIUM 2.9 mmol/L (3.5-5.1)
[2022-08-20] MEDS ORDERED: POTASSIUM CHLORIDE 20 MEQ TAB CR PO STA (19:10)
[2022-08-20] MEDS ORDERED: LACTATED RINGER'S 1,000 ML INJ ONE (19:15)
[2022-08-20] MEDS ORDERED: ASPIRIN 81 MG CHEW TAB PO ONE (19:15)
[2022-08-20] MEDS ORDERED: KETOROLAC TROMETHAMINE 30 MG/ML VIAL IV STA (19:16)
[2022-08-20] MEDS ORDERED: HYDROCODONE/APAP 5MG-325MG TAB PO ONE (20:15)
== END 2022-08-20 23:12 | disposition home or self-care (01) ==
LOC: ER 18:02
DX: R06.02 Shortness of breath (principal); R07.9 Chest pain, unspecified; Z99.81 Dependence on supplemental oxygen; E11.65 Type 2 diabetes mellitus with hyperglycemia; I10 Essential (primary) hypertension; E78.5 Hyperlipidemia, unspecified; I25.10 Atherosclerotic heart disease of native coronary artery without angina pectoris; R94.31 Abnormal electrocardiogram [ECG] [EKG]; Z95.810 Presence of automatic (implantable) cardiac defibrillator; Z95.1 Presence of aortocoronary bypass graft
CPT/HCPCS: 36415; 71045; 80053; 83690; 84484; 85025; 93005; 99284; J1885; J7121